=== PATIENT | female | born 1960 | race Caucasian/White ===

== ENCOUNTER 2017-06-30 09:32 | Emergency (ER) | payer SELFPAY ==
[~2017-06-30] VITALS: Ht 162.6 cm; Wt 68.0 kg
[~2017-06-30 09:32] MED LIST: PRED10 PO
[2017-06-30 09:34] VITALS: BP 197/87; PULSE 72; RESP 20; TEMP 98.5; O2SAT 91
[2017-06-30] MEDS ORDERED: VENTAER INH (10:11)
[2017-06-30] MEDS ORDERED: FLUT1SPR5 EACH NARE (10:11)
[2017-06-30] MEDS ORDERED: ZITHTAB PO (10:11)
[2017-06-30] MEDS ORDERED: PRED10PA2 PO (10:11)
--- NOTE | 2017-06-30 10:12 | PD ---
HPI . Cold Chief Complaint: Cold / Flu Symptoms Time Seen by Provider: 09:51 Travel History International Travel<30 days: No Contact w/Intl Traveler<30days: No Traveled to known affect area: No History of Present Illness HPI This patient presents with cold symptoms. Onset was a week ago. She is describing nasal congestion, sinus pressure, headache, cough, poor appetite, weakness. Symptoms seem to be exacerbated by lying down and improved by sitting up. She has taken an occasional Actifed and an occasional BC with some relief of her symptoms. PFSH Past Medical History Asthma: No Cancer: No Cardiovascular Problems: No COPD: No Diminished Hearing: No Endocrine: No Genitourinary: No Immune Disorder: No Musculoskeletal: No Neurologic: No Psychiatric: No Reproductive: Yes (endometriosis) Respiratory: Yes (copd) Sleep Apnea: No ?: Not Past Surgical History Abdominal Surgery: No Section: Yes Ear Surgery: No Endocrine Surgery: No Eye Surgery: No Genitourinary Surgery: No Gynecologic Surgery: Yes (histerectomy, x2) Hysterectomy: Yes Oral Surgery: No Thoracic Surgery: No Other Surgery: Yes Social History Alcohol Use: No Tobacco Use: Yes (10/28 ppd) Substance Use: No Allergies-Medications (Allergen,Severity, Reaction): Coded Allergies: promethazine (Unverified Allergy, Severe, rash, 06/10/17) Reported Meds & Prescriptions Reported Meds & Active Scripts Active No Active Prescriptions or Reported Medications Review of Systems Except as stated in HPI: all other systems reviewed are Neg General / Constitutional: No: Fever, Chills HENT: Positive: Headaches, Congestion Respiratory: Positive: Cough Gastrointestinal: Positive: Loss of Appetite Neurologic: Positive: Weakness Physical Exam Narrative GENERAL: This is a healthy-appearing woman who is awake and alert and in no acute distress. SKIN: warm/dry. HEAD: Normocephalic. EYES: Pupils equal and round. No scleral icterus. No injection or drainage. ENT: Significant edema of the nasal mucosa. Mucous membranes pink and moist. Sinuses are nontender to percussion. NECK: Trachea midline. Full range of motion without pain. No cervical lymphadenopathy. CARDIOVASCULAR: Regular rate and rhythm. RESPIRATORY: No accessory muscle use. Coarse, diffuse expiratory wheezing. Breath sounds equal bilaterally. MUSCULOSKELETAL: No obvious deformities. NEUROLOGICAL: Awake and alert. No obvious cranial nerve deficits. Motor grossly within normal limits. Normal speech. PSYCHIATRIC: Appropriate mood and affect; insight and judgment normal. Data Data Last Documented VS Vital Signs Date Time Temp Pulse Resp B/P (MAP) Pulse Ox O2 Delivery O2 Flow Rate FiO2 06/30/17 09:34 98.5 72 20 197/87 (123) 91 Room Air MDM Medical Decision Making Medical Screen Exam Complete: Yes Emergency Medical Condition: Yes Differential Diagnosis Differential diagnosis includes but is not limited to influenza, upper respiratory infection, bronchitis, pneumonia Narrative Course Patient presents with cold symptoms. She does have some coarse wheezing. She will be treated for bronchitis. Diagnosis Primary Impression: Upper respiratory infection Qualified Codes: J06.9 - Acute upper respiratory infection, unspecified; B97.89 - Other viral agents as the cause of diseases classified elsewhere Additional Impression: COPD (chronic obstructive pulmonary disease) Qualified Codes: J44.9 - Chronic obstructive pulmonary disease, unspecified Patient Instructions: COPD (Chronic Obstructive Pulmonary Disease) (DC), General Instructions, Upper Respiratory Infection (DC) Additional Instructions: I recommend the use of a Neti Pot. You may use a nasal spray such as Afrin for up to 3 days as needed for nasal congestion. You may take an [id number] antihistamine such as Zyrtec, Mary or Claritin as needed for runny secretions. You may take pseudoephedrine as needed for congestion. You will need to sign for this at the pharmacy. You may take plain Mucinex, 1200 mg twice a day as needed for thick secretions. You may take a cough syrup such as Delsym as needed for cough. Motrin as needed for fever and body aches. Throat lozenges/sprays as needed for sore throat. Warm salt water gargles for sore throat. Hot tea with lemon and honey also helps soothe a sore throat. Med/Other Pt SpecificInfo: Prescription(s) given Scripts Fluticasone Nasal Schneider (Flonase Nasal Schneider) 50 Mcg/Act Schneider 100 MCG EACH NARE BID for Allergies, #1 BOTTLE 0 Refills Prov: Sandi Chavez MD 06/30/17 Albuterol 18 GM Inh (Ventolin Hfa 18 GM Inh) 90 Mcg/Act Aer 2 PUFF INH Q4H Y for SHORTNESS OF BREATH, #1 INHALER 0 Refills Prov: Sandi Chavez MD 06/30/17 Azithromycin (Zithromax Z-Antonio) 250 Mg Dspk 250 MG PO DIRECTED for Infection, #1 DSPK 0 Refills 500 MG (2 tabs) day 1, then 1 tab days 2-5. Prov: Sandi Chavez MD 06/30/17 Prednisone (48) 10 mg tab Dose Pack (Prednisone (48) 10 mg tab Dose Pack) 10 Mg Dspk 10 MG PO DIRECTED for Inflammation, #1 DSPK 0 Refills Prov: Sandi Chavez MD 06/30/17 Disposition: 01 DISCHARGE HOME Condition: Stable Sandi Chavez MD Jun 30, 2017 10:12
== END 2017-06-30 10:34 | disposition home or self-care (01) ==
LOC: NEPD 09:32
DX: J06.9 Acute upper respiratory infection, unspecified (principal); B97.89 Other viral agents as the cause of diseases classified elsewhere; J44.9 Chronic obstructive pulmonary disease, unspecified; F17.200 Nicotine dependence, unspecified, uncomplicated
CPT/HCPCS: 99284

== ENCOUNTER 2017-10-30 09:15 | Emergency (ER) | payer SELFPAY ==
[~2017-10-30 09:15] MED LIST changes: +FLUT1SPR5 EACH NARE; -PRED10 PO; +PRED10PA2 PO; +VENTAER INH; +ZITHTAB PO
[2017-10-30 09:22] VITALS: BP 133/77; PULSE 97; RESP 20; TEMP 98.2; O2SAT 95
[2017-10-30] MEDS ORDERED: methylPREDNISolone SOD SUCC 125 MG/2 ML VIAL IV PUSH ONE (09:45)
[2017-10-30] MEDS ORDERED: SODIUM CHLORIDE 0.9% FLUSH 10 ML FLUSH IVF PRN (09:45)
--- NOTE | 2017-10-30 09:45 | PD ---
HPI Chief Complaint: Chest Pain Time Seen by Provider: 09:30 Travel History International Travel<30 days: No Contact w/Intl Traveler<30days: No Traveled to known affect area: No History of Present Illness HPI 57-year-old female with PMH of COPD, current smoker, presents to the ED for evaluation of 8/10 left-sided chest pain. Onset around 1:30 this morning, radiating to the neck. Patient describes the pain as constant, worsened by movement and coughing. She endorses a one-month history of sinus congestion, runny nose, ear congestion, nonproductive cough and wheezing. She is unsure if she's had fevers. She's been treating with over the counter medication such as Mucinex DM and a rescue inhaler and had some improvement of symptoms until yesterday when she had an acute worsening of her symptoms. She endorses many sick contacts. She did not have this years flu vaccine. She does not currently have a primary care provider. She does not have an albuterol nebulizer at home. PFSH Past Medical History Arthritis: Yes Asthma: No Cancer: No Cardiovascular Problems: No COPD: No Diminished Hearing: No Endocrine: No Genitourinary: No Immune Disorder: No Musculoskeletal: No Neurologic: No Psychiatric: No Reproductive: Yes (endometriosis) Respiratory: Yes (copd) Sleep Apnea: No ?: Not Past Surgical History Abdominal Surgery: No Section: Yes Ear Surgery: No Endocrine Surgery: No Eye Surgery: No Genitourinary Surgery: No Gynecologic Surgery: Yes (histerectomy, x2) Hysterectomy: Yes Oral Surgery: No Thoracic Surgery: No Other Surgery: Yes Social History Alcohol Use: No Tobacco Use: Yes Substance Use: No Allergies-Medications (Allergen,Severity, Reaction): Coded Allergies: promethazine (Unverified Allergy, Severe, rash, 10/30/17) Reported Meds & Prescriptions Reported Meds & Active Scripts Active Prednisone 20 Mg Tab 40 Mg PO DAILY 5 Days Take 40 mg (2 tablets) daily for 5 days Nebulizer Kit/Tubing/Mout (N/A) 1 Kit Kit Kit .ROUTE DIRECTED Coditussin AC Liq (Guaifenesin-Codeine Liq) 200-10 Mg/5ML Liqd 5 Ml PO Q4H PRN Tessalon Perles (Benzonatate) 100 Mg Cap 200 Mg PO TID PRN Albuterol Neb (Albuterol Sulfate) 2.5 Mg/3 Ml Neb 2.5 Mg NEB Q4HR NEB PRN Doxycycline (Doxycycline (Monohydrate)) 100 Mg Cap 100 Mg PO BID 5 Days Review of Systems Except as stated in HPI: all other systems reviewed are Neg Physical Exam Narrative GENERAL: Well-nourished, well-developed white female in no acute distress. SKIN: Warm and dry. HEAD: Normocephalic. Atraumatic. EYES: No scleral icterus. No injection or drainage. PERRLA. EOMI. ENT: Pearly lewis tympanic membranes bilaterally. Nasal mucosa is moist. Oropharynx without erythema, edema or exudate. NECK: Supple, trachea midline. No JVD or lymphadenopathy. CARDIOVASCULAR: Regular rate and rhythm without murmurs, gallops, or rubs. CHEST: Tender to palpation of the left lateral chest and breast. Otherwise nontender throughout without deformity or crepitus. No retractions or use of accessory muscles. RESPIRATORY: Breath sounds coarse with bilateral end expiratory wheezing. GASTROINTESTINAL: Abdomen soft, non-tender, nondistended. + Bowel sounds MUSCULOSKELETAL: No cyanosis, or edema. Noted to walk with a normal gait. BACK: Nontender without obvious deformity. No CVA tenderness. Data Data Last Documented VS Vital Signs Date Time Temp Pulse Resp B/P (MAP) Pulse Ox O2 Delivery O2 Flow Rate FiO2 10/30/17 12:00 10/30/17 11:20 95 20 93 10/30/17 09:22 98.2 Orders Orders Complete Blood Count With Diff (10/30/17 09:38) Comprehensive Metabolic Panel (10/30/17 09:38) D-Dimer (10/30/17 09:38) Act Partial Throm Time (Ptt) (10/30/17 09:38) Prothrombin Time / Inr (Pt) (10/30/17 09:38) Ckmb (Isoenzyme) Profile (10/30/17 09:38) Troponin I (10/30/17 09:38) Influenzae A/B Antigen (10/30/17 09:38) Iv Access Insert/Monitor (10/30/17 09:38) Ecg Monitoring (10/30/17 09:38) Oximetry (10/30/17 09:38) Chest, Single Ap (10/30/17 09:38) Sodium Chloride 0.9% Flush (Ns Flush) (10/30/17 09:45) Methylprednisolone So Succ Inj (Solumedr (10/30/17 09:45) Albuterol-Ipratropium Neb (Duoneb Neb) (10/30/17 09:45) Electrocardiogram (10/30/17 ) Ed Discharge Order (10/30/17 11:41) Labs Laboratory Tests Test 10/30/17 09:45 White Blood Count 15.1 TH/MM3 Red Blood Count 4.54 MIL/MM3 Hemoglobin 14.6 GM/DL Hematocrit 44.0 % Mean Corpuscular Volume 96.8 FL Mean Corpuscular Hemoglobin 32.2 PG Mean Corpuscular Hemoglobin Concent 33.3 % Red Cell Distribution Width 15.9 % Platelet Count 215 TH/MM3 Mean Platelet Volume 8.2 FL Neutrophils (%) (Auto) 85.6 % Lymphocytes (%) (Auto) 7.1 % Monocytes (%) (Auto) 6.6 % Eosinophils (%) (Auto) 0.3 % Basophils (%) (Auto) 0.4 % Neutrophils # (Auto) 12.9 TH/MM3 Lymphocytes # (Auto) 1.1 TH/MM3 Monocytes # (Auto) 1.0 TH/MM3 Eosinophils # (Auto) 0.0 TH/MM3 Basophils # (Auto) 0.1 TH/MM3 CBC Comment DIFF FINAL Differential Comment Prothrombin Time 10.1 SEC Prothromb Time International Ratio 1.0 RATIO Activated Partial Thromboplast Time 26.5 SEC D-Dimer Quantitative (PE/DVT) 0.35 MG/L FEU Blood Urea Nitrogen 16 MG/DL Creatinine 0.66 MG/DL Random Glucose 101 MG/DL Total Protein 7.2 GM/DL Albumin 3.5 GM/DL Calcium Level 8.9 MG/DL Alkaline Phosphatase 75 U/L Aspartate Amino Transf (AST/SGOT) 16 U/L Alanine Aminotransferase (ALT/SGPT) 15 U/L Total Bilirubin 0.3 MG/DL Sodium Level 138 MEQ/L Potassium Level 4.1 MEQ/L Chloride Level 105 MEQ/L Carbon Dioxide Level 26.0 MEQ/L Anion Gap 7 MEQ/L Estimat Glomerular Filtration Rate 93 ML/MIN Total Creatine Kinase 41 U/L Troponin I LESS THAN 0.02 NG/ML MDM Medical Decision Making Medical Screen Exam Complete: Yes Emergency Medical Condition: Yes Differential Diagnosis COPD exacerbation versus bronchitis versus pneumonia versus less likely ACS versus less likely PE versus other Narrative Course 57-year-old female with PMH of COPD, current smoker, presents to the ED for evaluation of 8/10 left-sided chest pain. Onset around 1:30 this morning, radiating to the neck. Constant, worsened by movement and coughing. She endorses a one-month history of sinus congestion, runny nose, ear congestion, nonproductive cough and wheezing. She is unsure if she's had fevers. She's been treating with over the counter medication such as Mucinex DM and a rescue inhaler and had some improvement of symptoms until yesterday when she had an acute worsening of her symptoms. She endorses many sick contacts. She did not have this years flu vaccine. Vitals reviewed. Physical exam reveals an ill- appearing white female in no acute distress. There is reproducible chest pain on the lateral aspect of the left breast, the area where the patient complains of pain. Breath sounds coarse and wheezy bilaterally. Patient was administered IM steroids, nebs 3. EKG rate 93, sinus rhythm. NH interval 145, QRS 86, QTC 403. Normal axis. Q waves in V1/V2. No acute ST changes. Reviewed by Dr. Hernandez. Cardiac enzymes negative 1. Chest x-ray without evidence of consolidation. WBCs 15.1 with left shift. D-dimer negative. Remaining lab work unremarkable. Discussed results of the workup with the patient. I doubt cardiac origin for chest pain. This is COPD exacerbation with pleurisy. Patient is prescribed a course of doxycycline, prednisone, multiple cough medications, albuterol nebulizer and kit. She is instructed take her medications as prescribed, follow up with the [facility] clinic to establish primary care. We discussed reasons to return to the ED. She indicated understanding of instructions. She is stable and discharged home. Diagnosis Primary Impression: COPD exacerbation Additional Impression: Pleurisy Referrals: [facility] Patient Instructions: COPD (Chronic Obstructive Pulmonary Disease) (ED), General Instructions, Nutrition Guidelines for People with COPD (ED), Pleurisy ( ED) Departure Forms: Tests/Procedures, Work Release Enter return to work date: Nov 03, 2017 Med/Other Pt SpecificInfo: Prescription(s) given Scripts Prednisone (Prednisone) 20 Mg Tab 40 MG PO DAILY for 5 Days, #10 TAB 0 Refills Take 40 mg (2 tablets) daily for 5 days Prov: Fadi Hernandez MD 10/30/17 Nebulizer Kit/Tubing/Mout (Nebulizer Kit/Tubing/Mout) 1 Kit Kit KIT .ROUTE DIRECTED for Breathing Treatment, #1 0 Refills Prov: Fadi Hernandez MD 10/30/17 Guaifenesin-Codeine Liq (Coditussin AC Liq) 200-10 Mg/5ML Liqd 5 ML PO Q4H Y, #120 ML 0 Refills Prov: Fadi Hernandez MD 10/30/17 Benzonatate (Tessalon Perles) 100 Mg Cap 200 MG PO TID Y for COUGH, #15 CAP 0 Refills Prov: Fadi Hernandez MD 10/30/17 Albuterol Neb (Albuterol Neb) 2.5 Mg/3 Ml Neb 2.5 MG NEB Q4HR NEB Y for SHORTNESS OF BREATH, #60 NEBULE 0 Refills Prov: Fadi Hernandez MD 10/30/17 Doxycycline (Monohydrate) (Doxycycline) 100 Mg Cap 100 MG PO BID for 5 Days Prov: Fadi Hernandez MD 10/30/17 Disposition: 01 DISCHARGE HOME Condition: Stable Yamel Tran Oct 30, 2017 09:45
[2017-10-30] MEDS: RESP: ALBUTEROL 2.5 MG/IPRATROPIUM 0.5 MG NEB (SCH) INH (09:48)
[2017-10-30 09:52] VITALS: O2SAT 96
[2017-10-30 10:01] VITALS: BP 119/70; PULSE 86; RESP 20; O2SAT 100
[2017-10-30 10:03] LABS: AUTOMATED NEUTROPHIL # 12.9 TH/MM3 (1.8-7.7); BASOPHIL # 0.1 TH/MM3 (0-0.2); BASOPHIL % 0.4 % (0.0-2.0); EOSINOPHIL % 0.3 % (0.0-4.0); HEMOGLOBIN 14.6 GM/DL (11.6-15.3); LYMPH % 7.1 % (9.0-44.0); LYMPHOCYTE # 1.1 TH/MM3 (1.0-4.8); MEAN CELL VOLUME 96.8 FL (80.0-100.0); MEAN CORPUSCULAR HEMOGLOBIN 32.2 PG (27.0-34.0); MEAN CORPUSCULAR HGB CONC 33.3 % (32.0-36.0); MEAN PLATELET VOLUME 8.2 FL (7.0-11.0); MONO % 6.6 % (0.0-8.0); NEUT % 85.6 % (16.0-70.0); PLATELET COUNT 215 TH/MM3 (150-450); RED BLOOD COUNT 4.54 MIL/MM3 (4.00-5.30); RED CELL DISTRIBUTION WIDTH 15.9 % (11.6-17.2); WHITE BLOOD COUNT 15.1 TH/MM3 (4.0-11.0)
[2017-10-30 10:12] LABS: GLUCOSE,RANDOM 101 MG/DL (74-106)
[2017-10-30 10:14] LABS: CALCIUM 8.9 MG/DL (8.5-10.1)
[2017-10-30 10:15] LABS: AST (GOT) 16 U/L (15-37); CREATININE 0.66 MG/DL (0.50-1.00); GLOMERULAR FILTRATION RATE 93 ML/MIN (>89)
[2017-10-30 10:16] LABS: ALBUMIN 3.5 GM/DL (3.4-5.0)
[2017-10-30 10:21] LABS: ALT (GPT) 15 U/L (10-53)
[2017-10-30 10:22] LABS: ALKALINE PHOSPHATASE 75 U/L (45-117); BLOOD UREA NITROGEN 16 MG/DL (7-18); TOTAL PROTEIN 7.2 GM/DL (6.4-8.2)
[2017-10-30 10:23] LABS: PROTHROMBIN TIME - PATIENT 10.1 SEC (9.8-11.6); TROPONIN I LESS THAN 0.02 NG/ML (0.02-0.05)
[2017-10-30 10:26] LABS: D-DIMER 0.35 MG/L FEU (0.00-0.50)
[2017-10-30 10:29] LABS: TOTAL BILIRUBIN ADULT 0.3 MG/DL (0.2-1.0)
--- NOTE | 2017-10-30 10:30 | RADRPT ---
EXAM DATE/TIME: 10/30/2017 09:56 [facility] COMPARISON: CHEST SINGLE AP, April 04, 2015, 9:40. INDICATIONS : Left side chest pain since last night, cough and congestion x 1 month. MEDICAL HISTORY : None. SURGICAL HISTORY : None. ENCOUNTER: Initial ACUITY: 2 days PAIN SCORE: 7/10 LOCATION: Left chest FINDINGS: The examination demonstrates moderate COPD changes. The heart is normal in size. The mediastinal cont ours are within normal limits. The osseous structures of the trachea degenerative changes but are oth erwise intact. CONCLUSION: 1. Moderate COPD. 2. No pneumonia identified. No pneumothorax identified. Eligio Silva MD on October 30, 2017 at 10:26 Board Certified Radiologist. This report was verified electronically.
[2017-10-30 11:20] VITALS: BP 115/65; PULSE 95; RESP 20; O2SAT 93
[2017-10-30 11:28] LABS: CHLORIDE 105 MEQ/L (98-107); SODIUM (NA) 138 MEQ/L (136-145)
[2017-10-30] MEDS ORDERED: PRED20 PO (11:39)
[2017-10-30] MEDS ORDERED: DOXY1CAP91 PO (11:39)
[2017-10-30] MEDS ORDERED: NEBUKIT5 (11:39)
[2017-10-30] MEDS ORDERED: ALBU0.08 NEB (11:39)
[2017-10-30] MEDS ORDERED: GUAI1LIQ13 PO (11:39)
[2017-10-30] MEDS ORDERED: BENZ100 PO (11:39)
--- NOTE | 2017-10-31 18:34 | EKG ---
Date Performed: 10/30/2017 Time Performed: 09:23:40 PTAGE: 57 years EKG: Sinus rhythm POSSIBLE RIGHT ATRIAL ENLARGEMENT SEPTAL MYOCARDIAL INFARCTION ABNORMAL ECG INTERPRETATION BASED ON A DEFAULT AGE OF 40 YEARS PREVIOUS TRACING : 04/02/2015 00.25 DOCTOR: Austin Armstrong Interpretating Date/Time 10/31/2017 18:33:09
== END 2017-10-30 12:10 | disposition home or self-care (01) ==
LOC: PHEFT 09:15
DX: J44.1 Chronic obstructive pulmonary disease with (acute) exacerbation (principal); R09.1 Pleurisy; M19.90 Unspecified osteoarthritis, unspecified site; R94.31 Abnormal electrocardiogram [ECG] [EKG]; I25.2 Old myocardial infarction; Z72.0 Tobacco use; Z79.899 Other long term (current) drug therapy; Z88.8 Allergy status to other drugs, medicaments and biological substances; Z79.51 Long term (current) use of inhaled steroids
CPT/HCPCS: 71045; 80053; 82550; 84484; 85025; 85379; 85610; 85730; 87804; 93005; 94640; 94664; 96374; 99285; J2930